=== PATIENT | female | born 2000 | race African-American/Black ===

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

== ENCOUNTER 2019-03-25 16:38 | Emergency (ER) | payer OTHER ==
[~2019-03-25] VITALS: Ht 167.6 cm; Wt 75.0 kg
[2019-03-25] MEDS ORDERED: IBUPROFEN 600MG TABLET PO ONE (19:30)
[2019-03-25 21:12] VITALS: BP 119/71
== END 2019-03-25 21:13 | disposition home or self-care (01) ==
LOC: ER 16:38
DX: S93.402A Sprain of unspecified ligament of left ankle, initial encounter (principal); W01.0XXA Fall on same level from slipping, tripping and stumbling without subsequent striking against object, initial encounter; Y93.89 Activity, other specified; Y92.89 Other specified places as the place of occurrence of the external cause; Y99.8 Other external cause status
CPT/HCPCS: 73610; 81025; 99283

== ENCOUNTER 2021-08-15 17:02 | Emergency (ER) | payer MEDICAID ==
[~2021-08-15] VITALS: Ht 157.5 cm; Wt 75.0 kg
[2021-08-15 17:13] VITALS: BP 135/89
== END 2021-08-15 21:23 | disposition left against medical advice (07) ==
LOC: ER 17:02
DX: Z53.21 Procedure and treatment not carried out due to patient leaving prior to being seen by health care provider (principal)